=== PATIENT | female | born 1985 | race American Indian/Alaskan Native ===

== ENCOUNTER 2017-02-10 15:50 | Emergency (ER) | payer MEDICAID ==
[2017-02-10 16:01] VITALS: BP 98/65; PULSE 70; RESP 20; TEMP 98.2; O2SAT 95
--- NOTE | 2017-02-10 16:43 | C.PDOC ---
History Of Present Illness 31 Y/O FEMALE C/O COUGH FOR 2 WEEKS. NOTES SHE HAS BEEN ON AUGMENTIN SINCE . PT C/O NEW ONSET EAR FULLNESS TO LEFT EAR SINCE YESTERDAY, NOW REPORTS BILATERAL EAR FULLNESS. ALSO (+) RUNNY NOSE. LIMITED RELIEF WITH TESSALON. DENIES FEVER, SORE THROAT. Time Seen by Provider: 02/10/17 16:25 Chief Complaint (Nursing): Flu-like Symptoms History Per: Patient History/Exam Limitations: no limitations Onset/Duration Of Symptoms: Days Current Symptoms Are (Timing): Still Present Sick Contacts (Context): None Associated Symptoms: Cough, Nasal Congestion. denies: Neck Pain, Vomiting Ear Symptoms: Bilateral: None Recent travel outside of the [place]: No Past Medical History Reviewed: Historical Data, Nursing Documentation, Vital Signs Vital Signs: Last Vital Signs Temp 98.2 F 02/10/17 16:00 Pulse 70 02/10/17 16:00 Resp 20 02/10/17 16:00 BP 98/65 L 02/10/17 16:00 Pulse Ox 95 02/10/17 16:45 - Medical History PMH: No Chronic Diseases Family History: States: Unknown Family Hx - Social History Hx Alcohol Use: No Hx Substance Use: No - Immunization History Hx Tetanus Toxoid Vaccination: No Hx Influenza Vaccination: No Review Of Systems Except As Marked, All Systems Reviewed And Found Negative. Constitutional: Negative for: Fever ENT: Positive for: Other (EAR FULLNESS). Negative for: Throat Pain Respiratory: Positive for: Cough. Negative for: Shortness of Breath, Wheezing Gastrointestinal: Negative for: Vomiting Musculoskeletal: Negative for: Neck Pain Skin: Negative for: Rash Neurological: Negative for: Headache, Dizziness Physical Exam - Physical Exam Appears: Non-toxic, No Acute Distress Skin: Normal Color, Warm, Dry Head: Atraumatic, Normacephalic Eye(s): bilateral: Normal Inspection, PERRL, EOMI Ear(s): Bilateral: Normal Nose: Other (+SINUS CONGESTION) Oral Mucosa: Moist Throat: Normal, No Erythema, No Exudate Neck: Supple Chest: Symmetrical Cardiovascular: Rhythm Regular Respiratory: Normal Breath Sounds, No Rales, No Rhonchi, No Wheezing Gastrointestinal/Abdominal: Soft, No Tenderness Back: Normal Inspection Extremity: Normal ROM, Capillary Refill (< 2 SEC. ) Neurological/Psych: Oriented x3, Normal Speech, Normal Cognition ED Course And Treatment O2 Sat by Pulse Oximetry: 95 (RA) Pulse Ox Interpretation: Normal - Radiology CXR: Interpreted by Me CXR Interpretation: Yes: No Acute Disease Progress Note: On reassessment, patient is resting comfortably, and is in no acute distress. Patient instructed to follow up with clinic/PMD within 1-2 days. Disposition Counseled Patient/Family Regarding: Studies Performed, Diagnosis, Need For Followup - Disposition Referrals: [facility] [Outside] YOUR,PMD [Other] Disposition: HOME/ ROUTINE Disposition Time: 16:43 Condition: GOOD Additional Instructions: CONTINUE CURRENT MEDS PRESCRIBED. FOLLOW UP WITH YOUR PMD Instructions: Rhinosinusitis (ED) - Clinical Impression Clinical Impression: Ear fullness, Rhinosinusitis - Scribe Statement The provider has reviewed the documentation as recorded by the Subhash Hernandez Provider Attestation: All medical record entries made by the Subhash were at my direction and personally dictated by me. I have reviewed the chart and agree that the record accurately reflects my personal performance of the history, physical exam, medical decision making, and the department course for this patient. I have also personally directed, reviewed, and agree with the discharge instructions and disposition.
--- NOTE | 2017-02-10 16:50 | RAD ---
HISTORY: COUGH COMPARISON: Chest x-ray performed 01/02/16 TECHNIQUE: Chest PA and lateral FINDINGS: Examination limited by habitus. LUNGS: No focal consolidation. Please note that chest x-ray has limited sensitivity for the detection of pulmonary masses. PLEURA: No significant pleural effusion identified. No definite pneumothorax . CARDIOVASCULAR: The cardiomediastinal silhouette appears within normal limits of size. OSSEOUS STRUCTURES: No acute osseous abnormality identified. VISUALIZED UPPER ABDOMEN: Unremarkable. OTHER FINDINGS: None. IMPRESSION: No focal consolidation, significant pleural effusion, or definite pneumothorax identified.
== END 2017-02-10 16:49 | disposition home or self-care (01) ==
LOC: C.ER 15:50
DX: J32.9 Chronic sinusitis, unspecified (principal)